=== PATIENT | female | born 1955 | race Caucasian/White ===

== ENCOUNTER 2021-12-31 12:42 | Emergency (ER) | payer MEDICARE ==
[~2021-12-31] VITALS: Ht 165.1 cm; Wt 90.7 kg
[2021-12-31] MEDS ORDERED: OMEP20CA15 PO (13:55)
--- NOTE | 2021-12-31 13:58 | NUR ---
Patient taken for CT Scan.
[2021-12-31 13:59] LABS: HEMATOCRIT 40.6 % (31.2-41.9); MEAN CORPUSCULAR HEMOGLOBIN 31.8 uug (24.7-32.8); MEAN CORPUSCULAR VOLUME 92.2 fL (75.5-95.3); PLATELET COUNT (AUTO) 208 K/uL (179-408)
[2021-12-31 14:11] LABS: CARBON DIOXIDE 27 mmol/L (21-32); CHLORIDE 103 mmol/L (98-107); GLUCOSE 106 mg/dL (74-106); UREA NITROGEN, BLOOD 24 mg/dL (7-18)
--- NOTE | 2021-12-31 14:13 | NUR ---
Patient back from CT scan.
[2021-12-31 16:21] VITALS: BP 146/98
--- NOTE | 2021-12-31 16:22 | NUR ---
Patient discharged to home in stable condition. Written and verbal after care instructions given. Patient verbalizes understanding of instructions. Stressed follow up or return to ER for worsening s/s.
== END 2021-12-31 16:22 | disposition home or self-care (01) ==
LOC: ER 12:46
DX: R55 Syncope and collapse (principal); G35 Multiple sclerosis; H46.9 Unspecified optic neuritis; K21.9 Gastro-esophageal reflux disease without esophagitis; Z79.899 Other long term (current) drug therapy; Z91.81 History of falling
CPT/HCPCS: 36415; 70450; 71045; 84484; 85025; 93005; A4663